=== PATIENT | female | born 1970 | race Caucasian/White ===

== ENCOUNTER 2017-07-28 16:31 | Emergency (ER) | payer OTHER ==
[~2017-07-28] VITALS: Ht 165.1 cm; Wt 82.1 kg
[~2017-07-28 16:31] MED LIST: NAPROSYN500 MG PO; NORFLEX100 MG PO; OSELB75 PO; PROMETHAZINE-D120 ML PO; ULTRAM 50MG TAB50 MG PO
[2017-07-28 17:11] LABS: INFLUENZA A ANTIGEN None Detected (None Detect); INFLUENZA B ANTIGEN None Detected (None Detect)
[2017-07-28] MEDS ORDERED: ACETAMINOPHEN-1 EAC1 PO (17:29)
[2017-07-28] MEDS ORDERED: ZPAK PO (17:30)
[2017-07-28 17:44] VITALS: BP 122/85
== END 2017-07-28 17:45 | disposition home or self-care (01) ==
LOC: M.ERS 16:31
PROVIDERS: Physician Assistant
DX: J02.9 Acute pharyngitis, unspecified (principal); R51 Headache; Z88.0 Allergy status to penicillin

== ENCOUNTER → 2019-05-27 | Outpatient (CLI) | payer OTHER ==
[~2019-05-27] MED LIST changes: +ACETAMINOPHEN-1 EAC1 PO; +ZPAK PO
== END ==
LOC: M.MRI 14:23
DX: C50.612 Malignant neoplasm of axillary tail of left female breast (principal)

== ENCOUNTER → 2019-09-01 | Outpatient (CLI) | payer OTHER | LOC: M.ULTRA 13:20 | DX: C50.412 Malignant neoplasm of upper-outer quadrant of left female breast (principal); Z17.1 Estrogen receptor negative status [ER-] ==

== ENCOUNTER → 2019-10-07 | Outpatient (CLI) | payer OTHER | LOC: M.ULTRA 13:30 | DX: C50.911 Malignant neoplasm of unspecified site of right female breast (principal) ==

== ENCOUNTER → 2019-11-11 | Day surgery (SDC) | payer OTHER ==
[~2019-11-11] MED LIST changes: +BACTRIM DS TAB1 EACH PO; +CLARITIN10 MG PO; +OXYBUTYNIN 5 MG5 M2 PO; +OXYCODONE HCL 55 MG PO
--- NOTE | 2019-11-16 08:21 | OP ---
[address] [address] OPERATIVE REPORT Name: ALEJANDRA AUSTIN Room: [facility]#: [id number] Admission: 11/11/19 Attend Phys: Johanne Good DO Discharge: Date of : 66 Report #: [id number] THIS REPORT FOR: //name// cc: Sharif Sandoval Steve T. DO ~ THIS REPORT FOR: //name// CC: Johanne Sandoval DATE OF SERVICE: 11/11/2019 PREOPERATIVE DIAGNOSIS: Triple negative left breast cancer, status post neoadjuvant chemotherapy. POSTOPERATIVE DIAGNOSIS: Triple negative left breast cancer, status post neoadjuvant chemotherapy. FINDINGS: RFID tag and clip in the left breast, nuclear medicine injection in the left breast. Uptake at the nipple was 200, uptake at a blue lymph node was 18. SURGEON: Johanne Good DO COSURGEON: Destiney Evans, PGY2. POLYTECHNIC REGISTRAR: None. PROCEDURE PERFORMED: Left breast RFID tag guided lumpectomy, left superficial sentinel lymph node dissection. ANESTHESIA: LMA and local. ESTIMATED BLOOD LOSS: 20 mL. DRAINS: None. SPECIMENS: Left breast lumpectomy, left sentinel lymph node, left axillary lymph nodes. COMPLICATIONS: None. CONDITION: Stable. [address] [address] OPERATIVE REPORT Name: ALEJANDRA AUSTIN Room: [facility]#: [id number] Admission: 11/11/19 Attend Phys: Johanne Good DO Discharge: Date of : 66 Report #: [id number] DISPOSITION: PACU to home. HISTORY OF PRESENT ILLNESS: The patient is a very sanjiv 49-year-old female who is well known to me after a diagnosis in April of left breast triple negative breast cancer. She was seen by Oncology and underwent neoadjuvant chemotherapy. She has now completed her neoadjuvant therapy and is ready for breast surgery. After multiple long discussions, we decided to move forward with a left breast clip or wire-guided lumpectomy and a sentinel lymph node dissection. Risks were discussed to include bleeding, infection, pain, scar formation, injury to nerve, artery or vein causing chronic pain, numbness or swelling, need for further surgery and risks of general anesthesia. The patient understood these risks and elected to proceed. DESCRIPTION OF PROCEDURE: The patient initially presented the day prior to surgery and underwent an ultrasound-guided RFID tag placement near the previously placed clip. She also underwent nuclear medicine injection in the left breast. On the day of surgery, she was seen in preop and then underwent informed consent. She was then taken to the OR where she was laid supine on the operating room table. SCDs were placed on bilateral lower extremities. Ancef was given in the perioperative period. General LMA anesthesia was induced by Anesthesia without difficulty, 5 mL of Lymphazurin blue dye were injected in the left breast. Left breast and chest were then prepped and draped in the standard sterile fashion. Timeout was performed to verify patient and procedure. Hematologic probe was brought onto the field and the left breast was interrogated until the RFID tag was identified. This area was marked. It was quite close to the left axilla. A 10 mL of 0.5% Marcaine were injected in this area. Curvilinear incision was made with a #15 blade. Cautery was used for hemostasis. Then, using the probe for guidance, a lumpectomy specimen was formed. Please note that her dissection was carried all the way down to the left pectoralis muscle. Once the specimen was explanted from the body, it was marked in the superior and lateral direction was taken to Radiology where it underwent mammography. The radiologist returned a phone call indicating that we had obtained the clip and the RFID tag. Neoprobe was then brought onto the field. The nipple was interrogated. Our uptake at the nipple was approximately 200. Neoprobe was then introduced into our previously formed cavity and we had an uptake directly off of our lumpectomy specimen. Upon further visualization of the area, there was a clear blue lymph node, which was easily identified. This area was gently grasped using an Allis clamp and was dissected free from the surrounding tissue. Highest uptake in this area was 18. This was then marked as our left sentinel lymph node. There were several palpable lymph nodes that still remained in this area as these were palpable and visible. These were also taken as additional left axillary lymph nodes. Once these were handed off. The Neoprobe was returned into the axilla and there was no further uptake. There were also no further palpable lymph nodes. Hemostasis was assured within the cavity. Cavity was copiously irrigated until clear. The cavity was then filled with FloSeal. Wound was then closed in a layered fashion using deep and [address] [address] OPERATIVE REPORT Name: ALEJANDRA AUSTIN [id number] Admission: 11/11/19 Attend Phys: Johanne Good DO Discharge: Date of : 66 Report #: [id number] superficial stitches of 3-0 Vicryl in inverted interrupted fashion. Skin wound was closed with running 4-0 Monocryl. A total of 30 mL of 0.5% Marcaine were used to anesthetize the wound. Wound was then cleansed and covered with Dermabond. The patient was then allowed to awake from anesthesia, was extubated and transported to the recovery room with no further difficulties. Counts were correct x 2 at the conclusion of the case. <ELECTRONICALLY SIGNED> By: Johanne Good DO 11/16/19 0821 [id number] Good DO /nt
--- NOTE | 2019-11-17 15:08 | PATH ---
[address] [address] PATHOLOGY RPT PROCEDURE Name: MAIRA AUSTIN Room: [facility]#: [id number] Admission: 11/11/19 Date of : 66 Discharge: Report #: [id number] Path Case #: [id number] [facility] Accession Number: [id number] . 01 Material submitted: . PART A: breast - LEFT LUMPECTOMY WITH RADIOGRAPHIC SEED/TAG. Modifiers: left PART B: lymph node - LEFT SENTINEL LYMPH NODES. Modifiers: left PART C: lymph node - LEFT AXILLARY LYMPH NODES. Modifiers: left, axillary tail . 01 Clinical history: . Infiltrating ductal carcinoma of left breast . 02 Diagnosis: A. Left breast lumpectomy: - Breast tissue with prior biopsy site associated with fibrosis and mild chronic inflammation compatible with therapy changes, and no residual malignancy or atypia. - Scattered luminal calcifications and medial calcifications of blood vessels. See comment. . B. Left sentinel lymph nodes: - One benign lymph node with prominent fatty replacement and no evidence of treated malignancy (0/1). See comment. . C. Left axillary lymph nodes: - One benign lymph node with prominent fatty replacement and no evidence of treated malignancy (0/1). . (SONYA:industrial chemicals supervisor; 11/17/2019) R 11/17/2019 1451 Local . 02 Comment: Review of Dr. Good's operative report dated 11/11/2019 reveals the patient to have had neoadjuvant chemotherapy after diagnosis of left breast triple negative breast cancer in April of 2019. The left breast biopsy rendered at [facility] showed invasive ductal carcinoma, high-grade (size/span not specified in available report) with breast tumor profile performed on A1 showing ER, SD and HER2 negative with Ki67 of 92.60% ([place] [id number]). A biopsy marker/clip was found embedded in tissues submitted in block A6 at the time of histologic sectioning. Properly controlled keratin AE1/AE3 performed on B1 shows no evidence of metastatic tumor. (SONYA:industrial chemicals supervisor; 11/17/2019) . 02 Electronically signed: [place] [id number] PATHOLOGY RPT PROCEDURE Name: GEOVANNAMAIRA A Room: [facility] M.R.#: [id number] Admission: 11/11/19 Date of : 66 Discharge: Report #: [id number] Path Case #: [id number] Cornell Brock MD, Pathologist NPI- [id number] . 01 Gross description: . A. The specimen is received in formalin, labeled "Maira Austin, left breast lumpectomy" and consists of a 25 g lumpectomy specimen oriented with a long stitch (presumed lateral) and a short stitch (presumed superior). It measures 5.8 cm L-M, 5.2 cm S-I, and 1.4 cm A-P, and is inked as follows: superior-blue, inferior-green, medial-red, lateral-yellow, anterior-orange, and posterior-black. It is sectioned from medial to lateral into 14 slices revealing a previous biopsy site in slices 3-6 measuring 1.7 x 1.0 cm that is related to margins as follows: 0.1 cm posterior, 0.8 centimeters anterior, 0.9 cm superior, 1.3 cm inferior, 0.9 cm medial, and greater than 2 cm lateral. The breast tissue just medial to the biopsy site is firm but a distinct mass is not identified. No biopsy marker is identified. The overall breast parenchyma has less than 1% fibrous tissue. The specimen is entirely submitted as follows: . A1: Slice 1 medial, perpendicular A2: Slice 2 A3-A4: Slice 3 A5-A6: Slice 4 A7-A8: Slice 5 A9-A10: Slice 6 A11-A12: Slice 7 A13-A14: Slice 8 A15-A16: Slice 9 A17-A18: Slice 10 A19-A20: Slice 11 A21-A22: Slice 12 A23: Slice 13 A24: Slice 14 lateral, perpendicular . The specimen was collected on 11/11/2019 and placed in formalin at 12:16 PM. The time collected is not provided. The time out of formalin is 11:50 PM on 11/12/2019. . B. The specimen is received in formalin, labeled "Maira Austin, left sentinel lymph nodes" and consists of a segment of yellow lobulated tissue measuring 2.8 x 1.9 x 1.5 cm. Sectioning reveals the specimen is a partially fat replaced lymph node showing pink to yellow cut surfaces. The specimen is entirely submitted in B1-B4. . C. The specimen is received in formalin, labeled "Maira Austin, left axillary lymph nodes" and consists of a segment of yellow lobulated tissue measuring 2.7 x 2.0 x 1.2 cm. Sectioning reveals a partially fat replaced lymph node measuring 2.5 x 1.3 cm. The specimen is entirely submitted in C1-C4. [facility] [address] [place] [address] PATHOLOGY RPT PROCEDURE Name: MAIRA AUSTIN Room: [facility]#: [id number] Admission: 11/11/19 Date of : 66 Discharge: Report #: [id number] Path Case #: [id number] (SDY; 11/12/2019) SYU/SYU 11/17/2019 1335 Local . 02 Pathologist provided ICD-10: N60.31, N61.0 . 02 CPT . 858917, 825530, 905190, [id number] Specimen Comment: A courtesy copy of this report has been sent to [phone], [phone] Specimen Comment: [phone], Specimen Comment: Report sent to ,DR NASCIMENTO / DR QUAN Performed at: 01 [facility] [address], [place], [place] [id number] MD Chauncey Gandara MD Phone: [phone] Performed at: 02 [facility] [address] [place], [place] [id number] MD Cornell Brock MD Phone: [phone]
== END | disposition home or self-care (01) ==
LOC: M.SUR 11-10 12:56
DX: N60.32 Fibrosclerosis of left breast (principal); N61.0 Mastitis without abscess; Z85.3 Personal history of malignant neoplasm of breast; Z98.890 Other specified postprocedural states; Z79.899 Other long term (current) drug therapy; Z88.0 Allergy status to penicillin

== ENCOUNTER → 2020-03-09 | Day surgery (SDC) | payer OTHER ==
[~2020-03-09] MED LIST changes: +ULTRAM50 MG PO
--- NOTE | ~2020-03-09 | OP ---
[address] [address] OPERATIVE REPORT Name: ALEJANDRA AUSTIN Nicholas Room: [facility]#: [id number] Admission: 03/09/20 Attend Phys: Johanne Good DO Discharge: Date of : 66 Report #: [id number] THIS REPORT FOR: //name// cc: Sharif Sandoval Steve T. DO ~ CC: Johanne Sandoval DICTATED BY: Mitchell Hahn DO DATE OF SERVICE: 03/09/2020 PREOPERATIVE DIAGNOSIS: Triple negative left breast cancer and history of chemo port placement. POSTOPERATIVE DIAGNOSIS: Triple negative left breast cancer and history of chemo port placement. PRIMARY SURGEON: Johanne Good DO CO-SURGEON: Mitchell Hahn DO, PGY4. OPERATION PERFORMED: Chemo port removal. ANESTHESIA: General and local. ESTIMATED BLOOD LOSS: 2. SPECIMEN REMOVED: Chemo port. COMPLICATIONS: None. INDICATIONS FOR PROCEDURE: The patient is a pleasant 49-year-old female who presents today for elective outpatient chemo port removal. She is status post treatment of her triple negative breast cancer including left breast lumpectomy and sentinel lymph node dissection, chemotherapy and radiation, no longer need of port. Full discussion of procedure, alternatives, risks, and possible complications were discussed include but not limited to bleeding, infection, postoperative pain, scarring, seroma, need for further surgery and anesthesia risks. The patient voiced understanding of these risks and agreed to proceed with surgery. DESCRIPTION OF PROCEDURE: The patient was again seen and examined in the preoperative holding area. Fully informed written consent was obtained. Preoperative antibiotics, 2 g Ancef were given. The patient was subsequently [facility] [address] [place] [address] OPERATIVE REPORT Name: ALEJANDRA AUSTIN Nicholas Room: [facility]#: [id number] Admission: 03/09/20 Attend Phys: Johanne Good DO Discharge: Date of : 66 Report #: [id number] transported to the operating room suite. After the surgical site was marked with a marking pen, she was placed on the operating table in a comfortable supine position. At this time, Anesthesia induced general anesthesia via LMA and this was successful. Right arm was tucked at the patient's side. Left arm was outstretched on the arm board. SCDs were placed on bilateral lower extremity calves. Grounding pad was placed in the right lateral thigh. All extremities and joints were padded and protected. Safety strap was placed across the patient's lap. She was then prepped and draped using standard sterile fashion. Time-out was performed. Prior to the onset of procedure we began by making a horizontal incision overlying the previous chemo port placement scar. Dissection was then carried down through dermal and subcutaneous tissues using electrocautery and blunt dissection with a hemostat, the chemo port capsule was encountered. Capsule was entered and the catheter hub was found and located. The sutures were removed holding the port to the pectoralis fascia. The port was then flipped out of the wound and the catheter and port were then removed with direct pressure being held at the jugular, pressure was held for 10 minutes. Chemo port was noted to be fully intact. All pieces were accounted for including the tip. This was passed off the back table and sent for pathology. Layered closure was then performed after copious irrigation of the incision with normal saline. Interrupted 3-0 Vicryl was used to close the subcutaneous and deep dermal layers and the skin was approximated using a running subcuticular 4-0 Monocryl. A sterile dressing was then applied after the skin was cleansed with wet and dry lap and sterile Dermabond. Once the Dermabond was fully dry, drapes were taken down. The patient was extubated in the OR and transferred to PACU in stable condition after a brief recovery from anesthesia.. PLAN: Discharged home. Follow up in the office with Dr. Good in 1 week. By: [id number] Good DO /mora
== END | disposition home or self-care (01) ==
LOC: M.SUR 06:05
PROVIDERS: ATTEND Surgery
DX: Z45.2 Encounter for adjustment and management of vascular access device (principal); C50.912 Malignant neoplasm of unspecified site of left female breast; K21.9 Gastro-esophageal reflux disease without esophagitis; Z98.890 Other specified postprocedural states; Z79.899 Other long term (current) drug therapy; Z88.0 Allergy status to penicillin; Z80.3 Family history of malignant neoplasm of breast

== ENCOUNTER → 2020-06-02 | Outpatient (CLI) | payer OTHER | LOC: M.RAD 12:44 | PROVIDERS: ATTEND Radiology Radiation Oncology | DX: R92.2 Inconclusive mammogram (principal); Z85.3 Personal history of malignant neoplasm of breast; Z92.3 Personal history of irradiation ==

== ENCOUNTER → 2021-06-01 | Outpatient (CLI) | payer OTHER | LOC: M.RAD 12:51 | PROVIDERS: ATTEND Radiology Radiation Oncology | DX: C50.412 Malignant neoplasm of upper-outer quadrant of left female breast (principal); Z17.1 Estrogen receptor negative status [ER-] ==